=== PATIENT | male | born 1940 | race American Indian/Alaskan Native ===

== ENCOUNTER 2017-01-07 15:21 | Inpatient (IN) | payer MEDICARE ==
[2017-01-07] MEDS ORDERED: NACL 0.9% 1000 ML IV ONE (15:32)
[2017-01-07] MEDS ORDERED: TYLENOL PO ONE (15:36)
--- NOTE | 2017-01-07 15:36 | Emergency Department Report ---
ED Fever HPI - General Stated Complaint: CHEST PAIN Time Seen by Provider: 01/07/17 15:26 - History of Present Illness Initial Comments: Patient found in non-running car by fire fighters. He was initially very confused on arrival. Denies any complaints. On my assessment initially told me that he is planning to go on a trip and was in the car to do that. His states that he didn't feel well this morning. His temperature was 103 rectally here. He is answering questions and appears to be more oriented now. Denies pain. He is currently on Cipro for a prostate infection. No shortness of breath cough chills. He denies back pain or chest pain. Timing/Duration: just prior to arrival Fever Severity/Quality: greater than 102 F Associated Symptoms: confusion, muscle aches, weakness. denies: abdominal pain , chest pain, cough, diaphoresis, headache, nausea/vomiting, shortness of breath , sore throat ED Review of Systems ROS: Stated complaint: CHEST PAIN Other details as noted in HPI Constitutional: denies: chills, fever Eyes: denies: eye pain, eye discharge, vision change ENT: denies: ear pain, throat pain Respiratory: denies: cough, shortness of breath, wheezing Cardiovascular: denies: chest pain, palpitations Endocrine: no symptoms reported Gastrointestinal: denies: abdominal pain, nausea, diarrhea Musculoskeletal: denies: back pain, joint swelling, arthralgia Skin: denies: rash, lesions Neurological: as per HPI, confusion Psychiatric: denies: anxiety, depression Hematological/Lymphatic: denies: easy bleeding, easy bruising ED Past Medical Hx - Past Medical History Previous Medical History?: Yes Additional medical history: Prostatitis - Surgical History Past Surgical History?: No - Family History Family history: no significant - Social History Smoking Status: Never Smoker Substance Use Type: None ED Physical Exam - General General appearance: alert, other (answering questions but slightly confused) - Head Head exam: Present: atraumatic, normocephalic - Eye Eye exam: Present: normal appearance, PERRL - ENT ENT exam: Present: normal exam, mucous membranes dry - Respiratory Respiratory exam: Present: normal lung sounds bilaterally. Absent: respiratory distress, wheezes - Cardiovascular Cardiovascular Exam: Present: normal rhythm, tachycardia - GI/Abdominal GI/Abdominal exam: Present: soft. Absent: distended, tenderness, guarding - Extremities Exam Extremities exam: Present: normal inspection. Absent: tenderness - Neurological Exam Neurological exam: Present: alert, oriented X3, CN II-XII intact - Psychiatric Psychiatric exam: Present: normal affect, normal mood - Skin Skin exam: Present: warm, dry, intact ED Course Vital Signs 01/07/17 01/07/17 01/07/17 15:24 15:30 15:31 Temperature 103.1 F H Pulse Rate 123 H 129 H Respiratory 18 20 Rate Blood Pressure 102/48 96/50 O2 Sat by Pulse 96 96 97 Oximetry 01/07/17 01/07/17 01/07/17 16:00 16:06 16:30 Temperature Pulse Rate 107 H 100 H Respiratory 25 H 18 18 Rate Blood Pressure 123/72 126/67 O2 Sat by Pulse 97 92 Oximetry 01/07/17 01/07/17 16:54 16:56 Temperature 100.1 F H Pulse Rate Respiratory 18 Rate Blood Pressure O2 Sat by Pulse 98 Oximetry ED Medical Decision Making - Lab Data Result diagrams: 01/07/17 16:08 01/07/17 16:08 - EKG Data 01/07/17 16:54 Sinus tach 138 normal axis prolonged QTC of [address] depression throughout all anterior leads - Medical Decision Making Patient is a 76-year-old male with likely sepsis versus heat-related illness, or potentially both. Here with fever and confusion on route. He currently has an improving mental status. Plan to give him initial sepsis treatment with IV fluids antibiotics and plan to reassess. Plan also head CT given his initial confusion. I do not suspect he has heat stroke. Patient with white count and left shift obvious UTI on urinalysis. Likely sepsis or urosepsis. Plan admit to IMS service. Portions of this chart were dictated with dictation software. There may be dictation errors contained within this note. Critical Care Time: Yes (35 mins) Critical care attestation.: If time is entered above; I have spent that time in minutes in the direct care of this critically ill patient, excluding procedure time. Critical Care Time: 35 minutes ED Disposition Clinical Impression: Prostatitis, Sepsis Disposition: OP ADMIT IP TO THIS HOSP Is pt being admited?: Yes Condition: Stable Referrals: PRIMARY CARE, [Primary Care Provider] - 3-5 Days
[2017-01-07 16:01] LABS: Bilirubin,Urine NEG (Negative); Blood,Urine LG (Negative); Ketones,Urine TR mg/dL (Negative); Leukocyte Esterase,Urine LG (Negative); Mucus,Urine 1+ /HPF; Nitrite,Urine NEG (Negative); Urobilinogen,Urine < 2.0 mg/dL (<2.0)
[2017-01-07 16:02] LABS: RBC,Urine > 182.0 /HPF (0.0-6.0); WBC,Urine > 182.0 /HPF (0.0-6.0)
--- NOTE | 2017-01-07 16:18 | Cat Scan Report ---
CT HEAD WITHOUT CONTRAST INDICATION: Altered mental status. COMPARISON: None similar at this institution. FINDINGS: Noncontrast head CT demonstrates symmetric, mild to moderately enlarged ventricles and predominantly bifrontal sulci, overall age appropriate. Mild periventricular hypodensities. No definite acute infarct, hemorrhage, mass effect or midline shift. No abnormal extra axial fluid collections. Normal posterior fossa with preserved basilar cisterns. Bilateral cataract surgery. Functional endoscopic sinus surgery also noted. Mild right maxillary sinus mucosal thickening. Clear remainder imaged paranasal sinuses and left temporal bone/mastoid air cells. Right temporal bone/mastoid air cells opacified with minimal fluid also suspected surrounding the middle ear ossicles. Right mastoid tip poorly pneumatized. Mild atherosclerotic ICA calcifications. Right temporoparietal craniotomy. Normal scalp. Edentulous jaw. CONCLUSION: Right otomastoiditis and few other incidental findings without acute intracranial CT abnormality, as described. Please correlate. Thank you for the opportunity to participate in this patient's care.
--- NOTE | 2017-01-07 16:24 | Admit Criteria Form ---
Admission Criteria Documentation: SEPSIS and OTHER FEBRILE ILLNESS, W/O FOCAL INFECTION Clinical Indications for Admission to Inpatient Care ( Place 'X' for any and all applicable criteria): Admission is indicated for ANY ONE of the following (1)(2)(3)(4): [ ] I. Bacteremia [ ]II. Suspected or identified specific infection requiring hospitalization (eg, meningitis, endocarditis) [ ]III. Hemodynamic instability [ ]IV. Altered mental status [ ]V. Failure or unavailability of outpatient antimicrobial treatment [ ]. Hypoxemia [ ]VII. Seizures [ ]VIII. High-risk febrile neutropenia [ ]IX. Need for parenteral antibiotic in patient who is likely to abuse vascular access device (eg, injection drug user) [A](7) [ ]X. Temperature greater than 104.9 degrees F (40.5 degrees C) (oral) [X ]XI. Inpatient admission required rather than observation care because of ANY ONE of the following: [ ]1) Specific infection identified that is too severe for outpatient treatment or observation care trial [ ]2) Metabolic disorder (eg, hypoglycemia, hyperglycemia, metabolic acidosis) that is severe or persistent [ X]3) Temperature greater than 103.1 degrees F (39.5 degrees C) ( oral) that is not responsive to observation care treatment [ ]4) IV fluid to replace significant ongoing (eg, for over 24 hours) losses (> 3 L/m2 per day) [ ]5) Supplemental oxygen or respiratory treatments for over 24 hours that is performable only in acute inpatient setting [ ]6) Parenteral nutrition regimen need that must be implemented on inpatient basis [ ]7) Strict or protective (eg, laminar flow) isolation [ ]8) Other condition, treatment or monitoring requiring inpatient admission Extended stay beyond goal length of stay may be needed for(1)(3) [ ]a) Sepsis or septic shock(22) [ ]b) Positive blood cultures [ ]c) Insufficient oral intake [ ]d) High-risk febrile neutropenia(29)(30) [ ]e) Continued fever and clinical instability [ ]f) Clinically active comorbid illness (e.g,heart failure, renal failure , diabetes) The original [facility] content created by Poli Rowe has been revised. The portions of the content which have been revised are identified through the use of italic text or in bold, and Poli Rowe has neither reviewed nor approved the modified material. All other unmodified content is copyright [facility]. Please see references footnoted in the original [facility] edition 2016 Admission Criteria Met: Yes
[2017-01-07 16:29] LABS: Basophils % (Auto) 0.2 % (0.0-1.8); Hematocrit 38.1 % (35.5-45.6); Hemoglobin 12.4 gm/dl (11.8-15.2); Mean Corpuscular HGB Conc 33 % (32-34); Mean Corpuscular Hemoglobin 26 pg (28-32); Mean Corpuscular Volume 80 fl (84-94); Platelet Count 182 K/mm3 (140-440); Red Blood Count 4.75 M/mm3 (3.65-5.03); Red Cell Distribution Width 15.7 % (13.2-15.2); White Blood Count 9.4 K/mm3 (4.5-11.0)
[2017-01-07] MEDS ORDERED: MAXIPIME/NS 2 GM/100 ML 2 GM/100 ML BAG IV ONE (16:30)
[2017-01-07] MEDS ORDERED: MORPHINE ONE (16:48)
[2017-01-07 16:54] LABS: Alanine Aminotransferase 17 units/L (7-56); Albumin 4.2 g/dL (3.9-5); Albumin/Globulin Ratio 1.4 %; Alkaline Phosphatase 74 units/L (35-129); Anion Gap 21 mmol/L; BUN/Creatinine Ratio 14.54; Blood Urea Nitrogen 16 mg/dL (9-20); Calcium 8.3 mg/dL (8.4-10.2); Carbon Dioxide 23 mmol/L (22-30); Chloride 98.6 mmol/L (98-107); Glucose 134 mg/dL (75-100); Lipase 20 units/L (13-60); Sodium 140 mmol/L (137-145); Total Protein 7.2 g/dL (6.3-8.2)
[2017-01-07 16:55] LABS: INR 1.17 (0.87-1.13)
[2017-01-07 17:02] LABS: Potassium 2.5 mmol/L (3.6-5.0)
[2017-01-07] MEDS ORDERED: K-DUR PO ONE ×2 (17:11→18:57)
--- NOTE | 2017-01-07 17:52 | History and Physical Report ---
History of Present Illness Date of examination: 01/07/17 Chief complaint: Altered mental status History of present illness: 76-year-old -[place] man with past medical history significant for hypertension, hyperlipidemia, prostatitis brought via EMS to the emergency department for the complaints of altered mental status. The patient was found confused in his car, the car was not running and the weather was hot. Patient was feeling okay since yesterday and she was not eating and drinking well. Patient denied fever, chills, palpitation. Patient was diagnosed with prostatitis by his primary care physician 3 days ago and he was started with ciprofloxacin. Patient admitted he has dysuria, urgency and frequency. In the emergency department his temperature was 103 and after cooling and IV fluids his temperature came down to 99.2. Patient was alert and oriented by the time I examined him. But he didn't know what happened earlier. REVIEW OF SYSTEMS: GENERAL: no weight change, no fatigue, no fever HEAD: no head ache EYES: no blurry vision, no acute visual loss EARS: no hearing loss, no discharge, no earache NOSE: no stuffiness, no sneezing, no discharge MOUTH, THROAT AND NECK: no bleeding gums, no sore throat, no swollen neck CARDIAC: no palpitations, no dyspnea on exertion, no orthopnea, no PND, no edema , no chest pain RESPIRATORY: no shortness of breath, no wheeze, no cough, no sputum, no hemoptysis, no asthma GI: no decreased appetite, no nausea, no vomiting, no dysphagia, no diarrhea, no constipation, no abdominal pain URINARY: no change in frequency, no urgency, no polyuria, no hematuria, no incontinence MUSCULOSKELETAL: no muscle weakness, no pain, no joint stiffness NEUROLOGIC: Confusion, loss of consciousness HEMATOLOGIC: no anemia, no easy bruising SKIN: no rashes ENDOCRINE: no heat/cold intolerance, no polyuria, no polydipsia, no thyroid problems, no diabetes PSYCHIATRIC: no anxiety, no depression, no suicidal ideations Past History Past Medical History: hypertension, hyperlipidemia, other (BPH) Past Surgical History: arthroscopy, hernia repair, Other (panel leak repair) Social history: full code, other. denies: smoking, alcohol abuse, prescription drug abuse, IV drug use Family history: no significant family history Medications and Allergies Allergies Allergy/AdvReac Type Severity Reaction Status Date / Time Sulfa (Sulfonamide Allergy Anaphylaxis Verified 01/07/17 15:30 Antibiotics) Active Meds: Active Medications Heparin Sodium (Porcine) (Heparin) 5,000 unit SUB-Q Q8H JOHNNIE Levofloxacin/Dextrose (Levaquin 750mg/150ml) 750 mg in 150 mls @ 100 mls/hr IV Q24HR JOHNNIE PRN Reason: Protocol Oxycodone/Acetaminophen (Percocet 5/325) 1 tab PO Q6H PRN PRN Reason: Pain, Moderate (4-6) Exam - Physical Exam Narrative exam: Not in cardiopulmonary distress. The patient is obese. Vital signs as documented. Head exam is unremarkable. No scleral icterus . Neck is without jugular venous distension, thyromegaly, or carotid bruits. Lungs are clear to auscultation. Cardiac exam reveals regular rate and Rhythm. First and second heart sounds normal. No murmurs, rubs or gallops. Abdominal exam reveals normal bowel sounds, no masses, no organomegaly and no aortic enlargement. Extremities are nonedematous and both femoral and pedal pulses are normal. COMPUTER BOOKKEEPER: Alert and oriented 3. No focal weakness. - Constitutional Vitals: Temp Pulse Resp BP Pulse Ox 100.1 F H 100 H 18 126/67 98 01/07/17 16:56 01/07/17 16:30 01/07/17 16:54 01/07/17 16:30 01/07/17 16:54 Results - Labs CBC & Chem 7: 01/07/17 16:08 01/07/17 16:08 Labs: Laboratory Last Values WBC 9.4 K/mm3 (4.5-11.0) 01/07/17 16:08 RBC 4.75 M/mm3 (3.65-5.03) 01/07/17 16:08 Hgb 12.4 gm/dl (11.8-15.2) 01/07/17 16:08 Hct 38.1 % (35.5-45.6) 01/07/17 16:08 MCV 80 fl (84-94) L 01/07/17 16:08 MCH 26 pg (28-32) L 01/07/17 16:08 MCHC 33 % (32-34) 01/07/17 16:08 RDW 15.7 % (13.2-15.2) H 01/07/17 16:08 Plt Count 182 K/mm3 (140-440) 01/07/17 16:08 Lymph % (Auto) 4.1 % (13.4-35.0) L 01/07/17 16:08 [place] % (Auto) 7.5 % (0.0-7.3) H 01/07/17 16:08 Eos % (Auto) 0.0 % (0.0-4.3) 01/07/17 16:08 Baso % (Auto) 0.2 % (0.0-1.8) 01/07/17 16:08 Lymph # 0.4 K/mm3 (1.2-5.4) L 01/07/17 16:08 [place] # 0.7 K/mm3 (0.0-0.8) 01/07/17 16:08 Eos # 0.0 K/mm3 (0.0-0.4) 01/07/17 16:08 Baso # 0.0 K/mm3 (0.0-0.1) 01/07/17 16:08 Seg Neutrophils % 88.2 % (40.0-70.0) H 01/07/17 16:08 Seg Neutrophils # 8.3 K/mm3 (1.8-7.7) H 01/07/17 16:08 PT 15.5 Sec. (12.2-14.9) H 01/07/17 16:08 INR 1.17 (0.87-1.13) H 01/07/17 16:08 Sodium 140 mmol/L (137-145) 01/07/17 16:08 Potassium 2.5 mmol/L (3.6-5.0) L* 01/07/17 16:08 Chloride 98.6 mmol/L (98-107) 01/07/17 16:08 Carbon Dioxide 23 mmol/L (22-30) 01/07/17 16:08 Anion Gap 21 mmol/L 01/07/17 16:08 BUN 16 mg/dL (9-20) 01/07/17 16:08 Creatinine 1.1 mg/dL (0.8-1.5) 01/07/17 16:08 Estimated GFR > 60 ml/min 01/07/17 16:08 BUN/Creatinine Ratio 14.54 % 01/07/17 16:08 Glucose 134 mg/dL (75-100) H 01/07/17 16:08 Lactic Acid 1.50 mmol/L (0.7-2.0) 01/07/17 16:08 Calcium 8.3 mg/dL (8.4-10.2) L 01/07/17 16:08 Total Bilirubin 0.40 mg/dL (0.1-1.2) 01/07/17 16:08 AST 23 units/L (5-40) 01/07/17 16:08 ALT 17 units/L (7-56) 01/07/17 16:08 Alkaline Phosphatase 74 units/L (35-129) 01/07/17 16:08 Troponin T < 0.010 ng/mL (0.00-0.029) 01/07/17 16:08 Total Protein 7.2 g/dL (6.3-8.2) 01/07/17 16:08 Albumin 4.2 g/dL (3.9-5) 01/07/17 16:08 Albumin/Globulin Ratio 1.4 % 01/07/17 16:08 Lipase 20 units/L (13-60) 01/07/17 16:08 Urine Color Yellow (Yellow) 01/07/17 15:37 Urine Turbidity Cloudy (Clear) 01/07/17 15:37 Urine pH 5.0 (5.0-7.0) 01/07/17 15:37 Ur Specific [place] 1.024 (1.003-1.030) 01/07/17 15:37 Urine Protein 100 mg/dl mg/dL (Negative) 01/07/17 15:37 Urine Glucose (UA) Neg mg/dL (Negative) 01/07/17 15:37 Urine Ketones Tr mg/dL (Negative) 01/07/17 15:37 Urine Blood Lg (Negative) 01/07/17 15:37 Urine Nitrite Neg (Negative) 01/07/17 15:37 Urine Bilirubin Neg (Negative) 01/07/17 15:37 Urine Urobilinogen < 2.0 mg/dL (<2.0) 01/07/17 15:37 Ur Leukocyte Esterase Lg (Negative) 01/07/17 15:37 Urine WBC (Auto) > 182.0 /HPF (0.0-6.0) H 01/07/17 15:37 Urine RBC (Auto) > 182.0 /HPF (0.0-6.0) 01/07/17 15:37 U Epithel Cells (Auto) 1.0 /HPF (0-13.0) 01/07/17 15:37 Urine Mucus 1+ /HPF 01/07/17 15:37 Urine WBC 183 - Imaging and Cardiology CT Scan - head: report reviewed (no acute intracranial process) Assessment and Plan Assessment and plan: Heat stroke - Patient was given IV fluids - Temperature went down and confusion resolved Prostatitis - IV Levaquin - We'll follow the urine culture result Hypertension -Currently within normal limits -We'll resume his medications if her pressure is going up Hyperlipidemia - We'll check lipid panel Hypokalemia - Repleted -We'll check potassium DVT prophylaxis - Heparin Disposition - Admit to medical floor Advance Directives: Yes (full code) VTE prophylaxis?: Chemical Plan of care discussed with patient/family: Yes
[2017-01-07] MEDS: PERCOCET 5/325 PO PRN (20:21)
[2017-01-07] MEDS: LEVAQUIN 750MG/150ML 750 MG/150 ML BAG IV SCH (20:22)
[2017-01-07] MEDS: HEPARIN SUB-Q SCH ×2 (20:41→22:03)
[2017-01-08] MEDS: PERCOCET 5/325 PO PRN ×3 (01:38→17:01)
[2017-01-08 05:24] LABS: Basophils % (Auto) 0.2 % (0.0-1.8); Eosinophils % (Auto) 0.1 % (0.0-4.3); Hematocrit 34.2 % (35.5-45.6); Hemoglobin 11.3 gm/dl (11.8-15.2); Mean Corpuscular HGB Conc 33 % (32-34); Mean Corpuscular Hemoglobin 26 pg (28-32); Mean Corpuscular Volume 80 fl (84-94); Platelet Count 168 K/mm3 (140-440); Red Blood Count 4.28 M/mm3 (3.65-5.03); Red Cell Distribution Width 15.6 % (13.2-15.2)
[2017-01-08] MEDS: HEPARIN SUB-Q SCH ×2 (05:36→14:54)
[2017-01-08 05:41] LABS: Anion Gap 17 mmol/L; Blood Urea Nitrogen 14 mg/dL (9-20); Calcium 7.9 mg/dL (8.4-10.2); Carbon Dioxide 26 mmol/L (22-30); Chloride 101.6 mmol/L (98-107); Glucose 113 mg/dL (75-100); Potassium 3.6 mmol/L (3.6-5.0); Sodium 141 mmol/L (137-145)
--- NOTE | 2017-01-08 07:58 | XRay Report ---
PORTABLE CHEST INDICATION: Fever, sepsis. COMPARISON: None similar. FINDINGS: Portable, frontal chest radiograph demonstrates slight exaggerated cardiomediastinal silhouette and grossly clear lungs, given the inspiration. Mild elevation of left hemidiaphragm laterally. No pleural effusions or CHF. Few small shrapnels project about the right axilla. EKG leads. Intact bones. CONCLUSION: No significant acute chest process, as described. Thank you for the opportunity to participate in this patient's care.
--- NOTE | 2017-01-08 08:36 | Progress Note ---
Assessment and Plan Assessment and plan: --Febrile illness Probably secondary to urinary tract infection, antibiotics, blood and urine cultures, empiric antibiotics --Sepsis secondary to urinary tract infection IV antibiotics IV fluids, follow cultures --DVT prophylaxis with Lovenox --Full CODE STATUS Closely monitor the patient had just the management as needed Follow culture sensitivities Disposition; possible discharge home tomorrow if remains afebrile more than 24 hours and clinically stable Plan of care discussed with the patient and his as well as the nurse History Interval history: Patient feels better no new complaints, Febrile MAXIMUM TEMPERATURE of 101 on empiric antibiotics Alert awake oriented 3 not in acute distress vitals reviewed Hospitalist Physical - Constitutional Vitals: Temp Pulse Resp BP Pulse Ox 101.3 F H 80 20 143/79 100 01/08/17 01:59 01/08/17 06:55 01/08/17 01:59 01/08/17 01:59 01/08/17 01:59 General appearance: Present: no acute distress, well-nourished - EENT Eyes: Present: PERRL, EOM intact - Neck Neck: Present: supple, normal ROM - Respiratory Respiratory effort: normal Respiratory: bilateral: diminished, rales, negative: rhonchi, wheezing - Cardiovascular Rhythm: regular Heart Sounds: Present: S1 & S2 - Extremities Extremities: no ischemia, No edema Peripheral Pulses: within normal limits - Abdominal General gastrointestinal: soft, non-tender, non-distended, normal bowel sounds - Integumentary Integumentary: Present: clear, warm - Psychiatric Psychiatric: appropriate mood/affect, cooperative, other (confused at times) - Neurologic Neurologic: CNII-XII intact, moves all extremities Results - Labs CBC & Chem 7: 01/08/17 04:46 01/08/17 04:46 Labs: Laboratory Last Values WBC 9.0 K/mm3 (4.5-11.0) 01/08/17 04:46 RBC 4.28 M/mm3 (3.65-5.03) 01/08/17 04:46 Hgb 11.3 gm/dl (11.8-15.2) L 01/08/17 04:46 Hct 34.2 % (35.5-45.6) L 01/08/17 04:46 MCV 80 fl (84-94) L 01/08/17 04:46 MCH 26 pg (28-32) L 01/08/17 04:46 MCHC 33 % (32-34) 01/08/17 04:46 RDW 15.6 % (13.2-15.2) H 01/08/17 04:46 Plt Count 168 K/mm3 (140-440) 01/08/17 04:46 Lymph % (Auto) 7.0 % (13.4-35.0) L 01/08/17 04:46 [place] % (Auto) 7.9 % (0.0-7.3) H 01/08/17 04:46 Eos % (Auto) 0.1 % (0.0-4.3) 01/08/17 04:46 Baso % (Auto) 0.2 % (0.0-1.8) 01/08/17 04:46 Lymph # 0.6 K/mm3 (1.2-5.4) L 01/08/17 04:46 [place] # 0.7 K/mm3 (0.0-0.8) 01/08/17 04:46 Eos # 0.0 K/mm3 (0.0-0.4) 01/08/17 04:46 Baso # 0.0 K/mm3 (0.0-0.1) 01/08/17 04:46 Seg Neutrophils % 84.8 % (40.0-70.0) H 01/08/17 04:46 Seg Neutrophils # 7.6 K/mm3 (1.8-7.7) 01/08/17 04:46 PT 15.5 Sec. (12.2-14.9) H 01/07/17 16:08 INR 1.17 (0.87-1.13) H 01/07/17 16:08 Sodium 141 mmol/L (137-145) 01/08/17 04:46 Potassium 3.6 mmol/L (3.6-5.0) 01/08/17 04:46 Chloride 101.6 mmol/L (98-107) 01/08/17 04:46 Carbon Dioxide 26 mmol/L (22-30) 01/08/17 04:46 Anion Gap 17 mmol/L 01/08/17 04:46 BUN 14 mg/dL (9-20) 01/08/17 04:46 Creatinine 0.8 mg/dL (0.8-1.5) 01/08/17 04:46 Estimated GFR > 60 ml/min 01/08/17 04:46 BUN/Creatinine Ratio 17.50 % 01/08/17 04:46 Glucose 113 mg/dL (75-100) H 01/08/17 04:46 Lactic Acid 1.10 mmol/L (0.7-2.0) 01/07/17 19:04 Calcium 7.9 mg/dL (8.4-10.2) L 01/08/17 04:46 Total Bilirubin 0.40 mg/dL (0.1-1.2) 01/07/17 16:08 AST 23 units/L (5-40) 01/07/17 16:08 ALT 17 units/L (7-56) 01/07/17 16:08 Alkaline Phosphatase 74 units/L (35-129) 01/07/17 16:08 Troponin T < 0.010 ng/mL (0.00-0.029) 01/07/17 16:08 Total Protein 7.2 g/dL (6.3-8.2) 01/07/17 16:08 Albumin 4.2 g/dL (3.9-5) 01/07/17 16:08 Albumin/Globulin Ratio 1.4 % 01/07/17 16:08 Triglycerides 54 mg/dL (2-149) 01/07/17 19:04 Cholesterol 126 mg/dL (50-199) 01/07/17 19:04 LDL Cholesterol Direct 53 mg/dL (50-130) 01/07/17 19:04 HDL Cholesterol 63 mg/dL (40-59) H 01/07/17 19:04 Cholesterol/HDL Ratio 2.00 % 01/07/17 19:04 Lipase 20 units/L (13-60) 01/07/17 16:08 Urine Color Yellow (Yellow) 01/07/17 15:37 Urine Turbidity Cloudy (Clear) 01/07/17 15:37 Urine pH 5.0 (5.0-7.0) 01/07/17 15:37 Ur Specific [place] 1.024 (1.003-1.030) 01/07/17 15:37 Urine Protein 100 mg/dl mg/dL (Negative) 01/07/17 15:37 Urine Glucose (UA) Neg mg/dL (Negative) 01/07/17 15:37 Urine Ketones Tr mg/dL (Negative) 01/07/17 15:37 Urine Blood Lg (Negative) 01/07/17 15:37 Urine Nitrite Neg (Negative) 01/07/17 15:37 Urine Bilirubin Neg (Negative) 01/07/17 15:37 Urine Urobilinogen < 2.0 mg/dL (<2.0) 01/07/17 15:37 Ur Leukocyte Esterase Lg (Negative) 01/07/17 15:37 Urine WBC (Auto) > 182.0 /HPF (0.0-6.0) H 01/07/17 15:37 Urine RBC (Auto) > 182.0 /HPF (0.0-6.0) 01/07/17 15:37 U Epithel Cells (Auto) 1.0 /HPF (0-13.0) 01/07/17 15:37 Urine Mucus 1+ /HPF 01/07/17 15:37
[2017-01-08] MEDS ORDERED: AMBIEN PO PRN (13:42)
[2017-01-08] MEDS ORDERED: COLACE PO PRN (13:42)
[2017-01-08] MEDS: LEVAQUIN 750MG/150ML 750 MG/150 ML BAG IV SCH (17:36)
[2017-01-08] MEDS: PEPCID PO SCH (22:00)
[2017-01-09] MEDS: HEPARIN SUB-Q SCH ×3 (00:01→21:19)
[2017-01-09] MEDS: PERCOCET 5/325 PO PRN ×3 (07:34→21:17)
[2017-01-09] MEDS: PEPCID PO SCH ×3 (08:55→21:18)
[2017-01-09] MEDS ORDERED: MORPHINE IV PRN (12:26)
--- NOTE | 2017-01-09 12:28 | Progress Note ---
Assessment and Plan Assessment and plan: --Febrile illness secondary to urinary tract infection/prostatitis Continue antibiotics, positive gram-negative urine cultures, follow culture sensitivities --Sepsis secondary to urinary tract infection/gram-negative infection IV antibiotics IV fluids, follow cultures --DVT prophylaxis with Lovenox --Full CODE STATUS Follow culture sensitivities, DC home on oral antibiotics Disposition; possible discharge home tomorrow if patient is stable Plan of care discussed with the patient and his as well as the nurse History Interval history: Patient Seen and evaluated medical records reviewed No new Events reported by the nursing staff Febrile, MAXIMUM TEMPERATURE 101.3 F Hospitalist Physical - Constitutional Vitals: Temp Pulse Resp BP Pulse Ox 97.7 F 65 18 143/84 100 01/09/17 10:00 01/09/17 10:00 01/09/17 10:00 01/09/17 10:00 01/09/17 10:00 General appearance: Present: no acute distress, well-nourished, other (febrile) - EENT Eyes: Present: PERRL, EOM intact - Neck Neck: Present: supple, normal ROM - Respiratory Respiratory effort: normal Respiratory: negative: rales, rhonchi, wheezing - Cardiovascular Rhythm: regular Heart Sounds: Present: S1 & S2 - Extremities Extremities: no ischemia, No edema - Abdominal General gastrointestinal: soft, non-tender, non-distended, normal bowel sounds - Integumentary Integumentary: Present: clear, warm - Psychiatric Psychiatric: appropriate mood/affect, cooperative - Neurologic Neurologic: CNII-XII intact, moves all extremities Results - Labs CBC & Chem 7: 01/08/17 04:46 01/08/17 04:46 Labs: Laboratory Last Values WBC 9.0 K/mm3 (4.5-11.0) 01/08/17 04:46 RBC 4.28 M/mm3 (3.65-5.03) 01/08/17 04:46 Hgb 11.3 gm/dl (11.8-15.2) L 01/08/17 04:46 Hct 34.2 % (35.5-45.6) L 01/08/17 04:46 MCV 80 fl (84-94) L 01/08/17 04:46 MCH 26 pg (28-32) L 01/08/17 04:46 MCHC 33 % (32-34) 01/08/17 04:46 RDW 15.6 % (13.2-15.2) H 01/08/17 04:46 Plt Count 168 K/mm3 (140-440) 01/08/17 04:46 Lymph % (Auto) 7.0 % (13.4-35.0) L 01/08/17 04:46 [place] % (Auto) 7.9 % (0.0-7.3) H 01/08/17 04:46 Eos % (Auto) 0.1 % (0.0-4.3) 01/08/17 04:46 Baso % (Auto) 0.2 % (0.0-1.8) 01/08/17 04:46 Lymph # 0.6 K/mm3 (1.2-5.4) L 01/08/17 04:46 [place] # 0.7 K/mm3 (0.0-0.8) 01/08/17 04:46 Eos # 0.0 K/mm3 (0.0-0.4) 01/08/17 04:46 Baso # 0.0 K/mm3 (0.0-0.1) 01/08/17 04:46 Seg Neutrophils % 84.8 % (40.0-70.0) H 01/08/17 04:46 Seg Neutrophils # 7.6 K/mm3 (1.8-7.7) 01/08/17 04:46 PT 15.5 Sec. (12.2-14.9) H 01/07/17 16:08 INR 1.17 (0.87-1.13) H 01/07/17 16:08 Sodium 141 mmol/L (137-145) 01/08/17 04:46 Potassium 3.6 mmol/L (3.6-5.0) 01/08/17 04:46 Chloride 101.6 mmol/L (98-107) 01/08/17 04:46 Carbon Dioxide 26 mmol/L (22-30) 01/08/17 04:46 Anion Gap 17 mmol/L 01/08/17 04:46 BUN 14 mg/dL (9-20) 01/08/17 04:46 Creatinine 0.8 mg/dL (0.8-1.5) 01/08/17 04:46 Estimated GFR > 60 ml/min 01/08/17 04:46 BUN/Creatinine Ratio 17.50 % 01/08/17 04:46 Glucose 113 mg/dL (75-100) H 01/08/17 04:46 Lactic Acid 1.10 mmol/L (0.7-2.0) 01/07/17 19:04 Calcium 7.9 mg/dL (8.4-10.2) L 01/08/17 04:46 Total Bilirubin 0.40 mg/dL (0.1-1.2) 01/07/17 16:08 AST 23 units/L (5-40) 01/07/17 16:08 ALT 17 units/L (7-56) 01/07/17 16:08 Alkaline Phosphatase 74 units/L (35-129) 01/07/17 16:08 Troponin T < 0.010 ng/mL (0.00-0.029) 01/07/17 16:08 Total Protein 7.2 g/dL (6.3-8.2) 01/07/17 16:08 Albumin 4.2 g/dL (3.9-5) 01/07/17 16:08 Albumin/Globulin Ratio 1.4 % 01/07/17 16:08 Triglycerides 54 mg/dL (2-149) 01/07/17 19:04 Cholesterol 126 mg/dL (50-199) 01/07/17 19:04 LDL Cholesterol Direct 53 mg/dL (50-130) 01/07/17 19:04 HDL Cholesterol 63 mg/dL (40-59) H 01/07/17 19:04 Cholesterol/HDL Ratio 2.00 % 01/07/17 19:04 Lipase 20 units/L (13-60) 01/07/17 16:08 Urine Color Yellow (Yellow) 01/07/17 15:37 Urine Turbidity Cloudy (Clear) 01/07/17 15:37 Urine pH 5.0 (5.0-7.0) 01/07/17 15:37 Ur Specific [place] 1.024 (1.003-1.030) 01/07/17 15:37 Urine Protein 100 mg/dl mg/dL (Negative) 01/07/17 15:37 Urine Glucose (UA) Neg mg/dL (Negative) 01/07/17 15:37 Urine Ketones Tr mg/dL (Negative) 01/07/17 15:37 Urine Blood Lg (Negative) 01/07/17 15:37 Urine Nitrite Neg (Negative) 01/07/17 15:37 Urine Bilirubin Neg (Negative) 01/07/17 15:37 Urine Urobilinogen < 2.0 mg/dL (<2.0) 01/07/17 15:37 Ur Leukocyte Esterase Lg (Negative) 01/07/17 15:37 Urine WBC (Auto) > 182.0 /HPF (0.0-6.0) H 01/07/17 15:37 Urine RBC (Auto) > 182.0 /HPF (0.0-6.0) 01/07/17 15:37 U Epithel Cells (Auto) 1.0 /HPF (0-13.0) 01/07/17 15:37 Urine Mucus 1+ /HPF 01/07/17 15:37
[2017-01-09] MEDS: LEVAQUIN 750MG/150ML 750 MG/150 ML BAG IV SCH (17:48)
[2017-01-10] MEDS: PERCOCET 5/325 PO PRN ×2 (02:55→10:23)
[2017-01-10 04:56] LABS: Basophils % (Auto) 0.4 % (0.0-1.8); Eosinophils % (Auto) 9.1 % (0.0-4.3); Hematocrit 35.7 % (35.5-45.6); Hemoglobin 11.7 gm/dl (11.8-15.2); Mean Corpuscular HGB Conc 33 % (32-34); Mean Corpuscular Hemoglobin 26 pg (28-32); Mean Corpuscular Volume 80 fl (84-94); Platelet Count 188 K/mm3 (140-440); Red Blood Count 4.47 M/mm3 (3.65-5.03); Red Cell Distribution Width 15.6 % (13.2-15.2); White Blood Count 3.8 K/mm3 (4.5-11.0)
[2017-01-10 05:21] LABS: Anion Gap 17 mmol/L; BUN/Creatinine Ratio 14.28; Blood Urea Nitrogen 10 mg/dL (9-20); Calcium 8.5 mg/dL (8.4-10.2); Carbon Dioxide 27 mmol/L (22-30); Chloride 100.8 mmol/L (98-107); Glucose 111 mg/dL (75-100); Potassium 3.3 mmol/L (3.6-5.0); Sodium 141 mmol/L (137-145)
[2017-01-10] MEDS: PEPCID PO SCH ×2 (10:23→23:14)
[2017-01-10] MEDS: LEVAQUIN PO SCH (13:02)
[2017-01-10] MEDS: HEPARIN SUB-Q SCH ×3 (14:00→23:12)
--- NOTE | 2017-01-10 19:01 | Discharge Summary ---
Providers - Providers Date of Admission: 01/07/17 17:12 Attending physician: SALVATORE BRANDT Primary care physician: ELLY BRYSON MD Hospitalization Condition: Stable Hospital course: --Febrile illness secondary to urinary tract infection/prostatitis Continue antibiotics, positive gram-negative urine cultures, follow culture sensitivities --Sepsis secondary to urinary tract infection/gram-negative infection IV antibiotics IV fluids, follow cultures --DVT prophylaxis with Lovenox --Full CODE STATUS Follow culture sensitivities, DC home on oral antibiotics Disposition; possible discharge home tomorrow if patient is stable Plan of care discussed with the patient and his as well as the nurse Disposition: DC-30 STILL A PATIENT Exam - Constitutional Vitals: Temp Pulse Resp BP Pulse Ox 98.2 F 83 20 149/86 99 01/10/17 10:00 01/10/17 10:00 01/10/17 10:00 01/10/17 10:00 01/10/17 10:00 Plan Follow up with: ELLY BRYSON MD [Primary Care Provider] - 3-5 Days
--- NOTE | 2017-01-10 19:34 | Progress Note ---
Assessment and Plan Assessment and Plan --Febrile illness secondary to urinary tract infection/prostatitis Continue antibiotics, positive gram-negative urine cultures, follow culture sensitivities --Sepsis secondary to urinary tract infection/gram-negative infection IV antibiotics IV fluids, follow cultures --DVT prophylaxis with Lovenox --Full CODE STATUS Follow culture sensitivities, DC home on oral antibiotics Disposition; possible discharge home tomorrow if patient is stable Plan of care discussed with the patient and his as well as the nurse Subjective Date of service: 01/10/17 Principal diagnosis: UTI/Prostatitis/Sepsis Interval history: Symptomatically better.Low grade fever. Objective - Exam Narrative Exam: Lying comfortably - Constitutional Vitals: Vital Signs - 12hr 01/10/17 10:00 Temperature 98.2 F Pulse Rate 83 Respiratory 20 Rate Blood Pressure 149/86 O2 Sat by Pulse 99 Oximetry General appearance: Present: no acute distress, well-nourished - EENT Eyes: PERRL, EOM intact ENT: hearing intact, clear oral mucosa Ears: bilateral: normal - Neck Neck: supple, normal ROM - Respiratory Respiratory effort: normal Respiratory: bilateral: CTA - Breasts Breasts: normal - Cardiovascular Heart rate: 70 Rhythm: regular Heart Sounds: Present: S1 & S2. Absent: gallop, rub Extremities: pulses intact, No edema, normal color, Full ROM - Gastrointestinal General gastrointestinal: Present: soft, non-tender, non-distended, normal bowel sounds - Genitourinary Male genitourinary: normal - Integumentary Integumentary: clear, warm, dry - Musculoskeletal Musculoskeletal: 1, strength equal bilaterally - Neurologic Neurologic: moves all extremities - Psychiatric Psychiatric: memory intact, appropriate mood/affect, intact judgment & insight - Labs CBC & Chem 7: 01/10/17 04:40 01/10/17 04:40 Labs: Abnormal lab results 01/10/17 01/10/17 Range/Units 04:40 04:40 WBC 3.8 L (4.5-11.0) K/mm3 Hgb 11.7 L (11.8-15.2) gm/dl MCV 80 L (84-94) fl MCH 26 L (28-32) pg RDW 15.6 H (13.2-15.2) % [place] % (Auto) 12.3 H (0.0-7.3) % Eos % (Auto) 9.1 H (0.0-4.3) % Lymph # 0.6 L (1.2-5.4) K/mm3 Potassium 3.3 L (3.6-5.0) mmol/L Creatinine 0.7 L (0.8-1.5) mg/dL Glucose 111 H (75-100) mg/dL
[2017-01-10] MEDS ORDERED: K-DUR PO ONE (20:00)
[2017-01-11] MEDS: PERCOCET 5/325 PO PRN ×2 (04:00→11:11)
[2017-01-11] MEDS: HEPARIN SUB-Q SCH ×2 (07:30→13:48)
[2017-01-11 10:12] VITALS: BP 122/75
[2017-01-11] MEDS: LEVAQUIN PO SCH (11:06)
[2017-01-11] MEDS: PEPCID PO SCH (11:06)
--- NOTE | 2017-01-11 12:37 | Discharge Summary ---
Providers - Providers Date of Admission: 01/07/17 17:12 Date of discharge: 01/11/17 Attending physician: STEPHON HAGEN Primary care physician: PICK UP OPERATOR Hospitalization Condition: Stable Hospital course: See discharge summary in reports.-Dictated Disposition: DC-01 TO HOME OR SELFCARE Core Measure Documentation - Palliative Care Palliative Care/ Comfort Measures: Not Applicable - Core Measures Any of the following diagnoses?: none Exam - Physical Exam Narrative exam: Lying comfortably - Constitutional Vitals: Temp Pulse Resp BP Pulse Ox 98.8 F 72 20 122/75 99 01/11/17 10:00 01/11/17 10:00 01/11/17 11:11 01/11/17 10:00 01/11/17 10:00 General appearance: Present: no acute distress, well-nourished - EENT Eyes: Present: PERRL ENT: hearing intact, clear oral mucosa - Neck Neck: Present: supple, normal ROM - Respiratory Respiratory effort: normal Respiratory: bilateral: CTA - Cardiovascular Heart Sounds: Present: S1 & S2. Absent: rub, click - Extremities Extremities: pulses symmetrical, No edema Peripheral Pulses: within normal limits - Abdominal General gastrointestinal: Present: soft, non-tender, non-distended, normal bowel sounds Male genitourinary: Present: normal - Integumentary Integumentary: Present: clear, warm, dry - Musculoskeletal Musculoskeletal: gait normal, strength equal bilaterally - Psychiatric Psychiatric: appropriate mood/affect, intact judgment & insight - Neurologic Neurologic: CNII-XII intact, moves all extremities Plan Activity: no restrictions Diet: low salt Follow up with: PRIMARY CARE, [Primary Care Provider] - 3-5 Days
[2017-01-11] MEDS ORDERED: K-DUR PO ONE (12:48)
[2017-01-11 14:31] LABS: Anion Gap 18 mmol/L; BUN/Creatinine Ratio 14.44; Blood Urea Nitrogen 13 mg/dL (9-20); Calcium 8.7 mg/dL (8.4-10.2); Carbon Dioxide 29 mmol/L (22-30); Chloride 94.6 mmol/L (98-107); Glucose 88 mg/dL (75-100); Potassium 3.6 mmol/L (3.6-5.0); Sodium 138 mmol/L (137-145)
--- NOTE | 2017-01-12 00:04 | Discharge Summary ---
HOSPITAL COURSE: The patient was brought in for altered mental status. The patient was found confused in his car. The car was not running and the weather was hot. The patient has not been drinking or eating well. No fever. No chills at the time of admission. In the ER, the patient had a documented temperature of 103 and later on it was 99.2. The patient was admitted for heatstroke, prostatitis, hypertension, hyperlipidemia, hypokalemia. The patient was started on IV Levaquin for prostatitis. Urine cultures came positive for gram-negative rods, but sensitivity was not there. The patient responded well to IV Levaquin. The patient is afebrile. The patient to be discharged on p.o. Levaquin for another 7 days. LABORATORY DATA: The patient's labs were normal at the time of discharge. Potassium was 3.3. H and H is 11.7 and 35.7. HDL cholesterol was 63. Potassium was repleted. DISCHARGE DIAGNOSES: 1. Heatstroke. 2. Prostatitis. 3. Sepsis. 4. Hypertension. 5. Hyperlipidemia. 6. Hypokalemia. DISCHARGE INSTRUCTIONS: The patient to take plenty of fluids, be in cool weather and also p.o. Levaquin for 7 more days. JOB# [id number] GUNNER/NTS
== END 2017-01-11 14:32 | disposition home or self-care (01) | DRG 872 ==
LOC: EDSEX → ED 15:21 → CC2 17:12
PROVIDERS: ADMIT Internal Medicine; ATTEND Internal Medicine
DX: A41.9 Sepsis, unspecified organism (principal); T67.0XXA Heatstroke and sunstroke, initial encounter; N39.0 Urinary tract infection, site not specified; N41.9 Inflammatory disease of prostate, unspecified; I10 Essential (primary) hypertension; E78.5 Hyperlipidemia, unspecified; E87.6 Hypokalemia; N40.0 Benign prostatic hyperplasia without lower urinary tract symptoms; B96.89 Other specified bacterial agents as the cause of diseases classified elsewhere; Z88.2 Allergy status to sulfonamides
CPT/HCPCS: 36415; 70450; 71010; 80048; 80053; 80061; 81001; 82140; 83690; 84132; 84484; 85025; 85610; 87040; 87076; 87086; 87186; 93005; 93010; 94760; 96361; 96365; 99291; J0692; J1644; J1956; J2270; J7030